=== PATIENT | female | born 1935 | race Caucasian/White ===

== ENCOUNTER 2017-11-05 22:05 | Emergency (ER) | payer OTHER ==
[~2017-11-05] VITALS: Ht 157.5 cm; Wt 48.1 kg
[2017-11-05 22:10] VITALS: BP_SYST 143
[2017-11-05] MEDS ORDERED: CARVEDILOL 6.25 MG TABLET (COREG) PO ONE (23:15)
[2017-11-06] MEDS ORDERED: LABETALOL 100 MG/ 20ML VIAL IVP ONE (00:15)
[2017-11-06] MEDS ORDERED: hydrALAZINE HCL 20 MG/ML VIAL IVP ONE (01:30)
[2017-11-06 02:10] VITALS: BP_SYST 137
== END 2017-11-06 02:20 | disposition home or self-care (01) ==
LOC: SED 22:05
DX: I10 Essential (primary) hypertension (principal); I48.91 Unspecified atrial fibrillation; Z90.49 Acquired absence of other specified parts of digestive tract; Z90.89 Acquired absence of other organs; Z90.710 Acquired absence of both cervix and uterus; Z98.84 Bariatric surgery status
CPT/HCPCS: 96374; 96375; 99284; J0360; J3490

== ENCOUNTER 2019-06-20 12:11 | Inpatient (IN) | payer OTHER ==
[~2019-06-20] VITALS: Ht 157.5 cm; Wt 41.3 kg
[2019-06-20 12:11] VITALS: BP_SYST 187
[2019-06-20] MEDS ORDERED: NITROGLYCERIN 1 INCH (GM) OINT. TD ONE (12:45)
[2019-06-20 13:57] LABS: ANION GAP 10 (5-15); CALCIUM 9.1 mg/dL (8.4-11.0); CHLORIDE 105 mmol/L (98-107); CREATININE 1.03 mg/dL (0.55-1.30); GLUCOSE 79 mg/dL (70-99); POTASSIUM 5.5 mmol/L (3.5-5.1); SODIUM SERUM 137 mmol/L (136-145); UREA NITROGEN, BLOOD 29 mg/dL (8-21)
[2019-06-20 14:01] LABS: BASOPHILS % (AUTO) 0.2 % (0.0-2.0); EOSINOPHILS # (AUTO) 0.1 K/uL (0.0-0.4); EOSINOPHILS % (AUTO) 0.6 % (0.0-4.0); HEMATOCRIT 37.5 % (36-48); HEMOGLOBIN 12.2 g/dL (12.0-16.0); LYMPHOCYTES # (AUTO) 0.7 K/uL (1.0-5.5); LYMPHOCYTES % (AUTO) 6.2 % (20.5-51.5); MEAN CORPUSCULAR HEMOGLOBIN 31 pg (27-31); MEAN CORPUSCULAR HGB CONC 33 % (32-36); MEAN CORPUSCULAR VOLUME 94 fL (79.0-98.0); MONOCYTES # (AUTO) 1.2 K/uL (0.0-1.0); MONOCYTES % (AUTO) 10.1 % (1.7-9.3); NEUTROPHILS # (AUTO) 9.6 K/uL (1.8-7.7); NEUTROPHILS % (AUTO) 82.9 % (40.0-70.0); PLATELET COUNT (AUTO) 309 K/uL (130-430); RED BLOOD CELL COUNT(AUTO) 3.97 MIL/uL (4.2-6.2); RED CELL DISTRIBUTION WIDTH 15.5 % (9.0-15.0); WHITE BLOOD COUNT (AUTO) 11.6 K/uL (4.8-10.8)
[2019-06-20 14:03] LABS: ALANINE AMINOTRANSFERASE 9 U/L (12-78); ASPARTATE AMINOTRANSFERASE 15 U/L (10-37); TOTAL BILIRUBIN 0.5 mg/dL (0.0-1.0)
[2019-06-20 16:59] VITALS: BP_SYST 163
[2019-06-20] MEDS ORDERED: CARV6.2554 PO (17:02)
[2019-06-20] MEDS ORDERED: PRO40 PO (17:02)
[2019-06-20] MEDS ORDERED: FERR-69 PO (17:02)
[2019-06-20] MEDS ORDERED: BENA10TA11 PO (17:02)
[2019-06-20] MEDS ORDERED: NEU100 PO (17:02)
[2019-06-20] MEDS ORDERED: HYDR25TA4 PO (17:02)
[2019-06-20] MEDS ORDERED: IMIP10TA2 PO (17:25)
[2019-06-20] MEDS ORDERED: CARVEDILOL 12.5 MG TABLET (COREG) PO ONE (17:45)
[2019-06-20] MEDS ORDERED: LISINOPRIL 20 MG TABLET PO ONE (17:45)
[2019-06-20] MEDS ORDERED: BENAZEPRIL HCL 10 MG TABLET (LOTENSIN) PO ONE (17:45)
[2019-06-20] MEDS ORDERED: ALBUTEROL SULFATE 0.083% 2.5 MG/3 ML VIAL.NEB INH PRN (19:00)
[2019-06-20] MEDS ORDERED: cefTRIAXone 1 GM in D5W 50 ML IV SCH (19:00)
[2019-06-20] MEDS ORDERED: IPRATROPIUM BROM 0.5 MG/2.5 ML VIAL.NEB (ATROVENT) INH PRN (19:00)
[2019-06-20] MEDS: IPRATROPIUM BROM 0.5 MG/2.5 ML VIAL.NEB (ATROVENT) INH SCH (19:51)
[2019-06-20] MEDS: ALBUTEROL SULFATE 0.083% 2.5 MG/3 ML VIAL.NEB INH SCH (19:51)
[2019-06-20 20:05] VITALS: BP_SYST 163
[2019-06-20 20:43] VITALS: BP_SYST 161
[2019-06-20] MEDS: LISINOPRIL 20 MG TABLET PO SCH (21:00)
[2019-06-20] MEDS ORDERED: BENAZEPRIL HCL 10 MG TABLET (LOTENSIN) PO SCH (21:00)
[2019-06-20] MEDS: CARVEDILOL 12.5 MG TABLET (COREG) PO SCH (21:46)
[2019-06-20] MEDS: AZITHROMYCIN 500 MG in NS 250 ML IV SCH (21:48)
[2019-06-20] MEDS: FAMOTIDINE PF 20 MG/2 ML VIAL IVP SCH (23:07)
[2019-06-20] MEDS ORDERED: PIPERACILLIN/TAZOBACTAM 3.375 GM/VIAL (ZOSYN) IV ONE (23:31)
[2019-06-20] MEDS: PIPERACILLIN/TAZO 3.375/DEX-IS 50 ML IV SCH (23:31)
[2019-06-21] MEDS ORDERED: SODIUM POLYSTYRENE SULFONATE 15 GM/60 ML UDBTL PO ONE (00:30)
[2019-06-21] MEDS: ALBUTEROL SULFATE 0.083% 2.5 MG/3 ML VIAL.NEB INH SCH ×4 (01:12→19:30)
[2019-06-21] MEDS: IPRATROPIUM BROM 0.5 MG/2.5 ML VIAL.NEB (ATROVENT) INH SCH ×4 (01:12→19:30)
[2019-06-21] MEDS: PIPERACILLIN/TAZO 3.375/DEX-IS 50 ML IV SCH ×3 (05:02→18:22)
[2019-06-21 05:37] VITALS: BP_SYST 125
[2019-06-21 07:36] VITALS: BP_SYST 157
[2019-06-21] MEDS: HEPARIN SODIUM,PORCINE 5000 UNITS/ML VIAL SUBCUT SCH ×2 (09:00→20:01)
[2019-06-21] MEDS: LISINOPRIL 20 MG TABLET PO SCH ×2 (09:01→19:59)
[2019-06-21] MEDS: IMIPRAMINE HCL 10 MG PO SCH (09:01)
[2019-06-21] MEDS: CARVEDILOL 12.5 MG TABLET (COREG) PO SCH ×2 (09:02→19:59)
[2019-06-21 13:51] VITALS: BP_SYST 159
[2019-06-21] MEDS ORDERED: CARVEDILOL 25 MG TABLET (COREG) PO ONE (16:45)
[2019-06-21] MEDS: AZITHROMYCIN 500 MG in NS 250 ML IV SCH (19:56)
[2019-06-21 20:00] VITALS: BP_SYST 165
[2019-06-21] MEDS: FAMOTIDINE PF 20 MG/2 ML VIAL IVP SCH (20:05)
[2019-06-21] MEDS ORDERED: TEMAZEPAM 7.5 MG CAPSULE PO PRN (20:30)
[2019-06-21 23:43] VITALS: BP_SYST 127
[2019-06-22] MEDS: PIPERACILLIN/TAZO 3.375/DEX-IS 50 ML IV SCH ×5 (00:36→23:30)
[2019-06-22] MEDS: IPRATROPIUM BROM 0.5 MG/2.5 ML VIAL.NEB (ATROVENT) INH SCH ×4 (01:29→21:24)
[2019-06-22] MEDS: ALBUTEROL SULFATE 0.083% 2.5 MG/3 ML VIAL.NEB INH SCH ×4 (01:29→21:24)
[2019-06-22 08:00] VITALS: BP_SYST 161
[2019-06-22] MEDS: FUROSEMIDE 20 MG/2 ML VIAL IVP SCH (09:06)
[2019-06-22] MEDS: CARVEDILOL 12.5 MG TABLET (COREG) PO SCH ×2 (09:07→20:45)
[2019-06-22] MEDS: IMIPRAMINE HCL 10 MG PO SCH (09:08)
[2019-06-22] MEDS: HEPARIN SODIUM,PORCINE 5000 UNITS/ML VIAL SUBCUT SCH ×2 (09:12→20:53)
[2019-06-22] MEDS: LISINOPRIL 20 MG TABLET PO SCH ×2 (09:13→20:44)
[2019-06-22 09:20] LABS: BASOPHILS % (AUTO) 0.5 % (0.0-2.0); EOSINOPHILS # (AUTO) 0.2 K/uL (0.0-0.4); EOSINOPHILS % (AUTO) 2.2 % (0.0-4.0); HEMOGLOBIN 12.1 g/dL (12.0-16.0); LYMPHOCYTES # (AUTO) 0.7 K/uL (1.0-5.5); MEAN CORPUSCULAR HEMOGLOBIN 31 pg (27-31); MEAN CORPUSCULAR HGB CONC 33 % (32-36); MEAN CORPUSCULAR VOLUME 95 fL (79.0-98.0); MONOCYTES # (AUTO) 0.5 K/uL (0.0-1.0); NEUTROPHILS # (AUTO) 7.2 K/uL (1.8-7.7); NEUTROPHILS % (AUTO) 83.3 % (40.0-70.0); PLATELET COUNT (AUTO) 239 K/uL (130-430); RED BLOOD CELL COUNT(AUTO) 3.91 MIL/uL (4.2-6.2); RED CELL DISTRIBUTION WIDTH 15.3 % (9.0-15.0); WHITE BLOOD COUNT (AUTO) 8.7 K/uL (4.8-10.8)
[2019-06-22 12:02] LABS: ANION GAP 10 (5-15); CALCIUM 9.7 mg/dL (8.4-11.0); CHLORIDE 100 mmol/L (98-107); CREATININE 1.32 mg/dL (0.55-1.30); GLUCOSE 77 mg/dL (70-99); POTASSIUM 3.9 mmol/L (3.5-5.1); SODIUM SERUM 132 mmol/L (136-145); UREA NITROGEN, BLOOD 28 mg/dL (8-21)
[2019-06-22 12:32] VITALS: BP_SYST 147
[2019-06-22 16:00] VITALS: BP_SYST 115
[2019-06-22 20:00] VITALS: BP_SYST 151
[2019-06-22] MEDS: FAMOTIDINE PF 20 MG/2 ML VIAL IVP SCH (20:45)
[2019-06-22] MEDS: AZITHROMYCIN 500 MG in NS 250 ML IV SCH (20:47)
[2019-06-23] MEDS: ALBUTEROL SULFATE 0.083% 2.5 MG/3 ML VIAL.NEB INH SCH ×3 (02:24→13:51)
[2019-06-23] MEDS: IPRATROPIUM BROM 0.5 MG/2.5 ML VIAL.NEB (ATROVENT) INH SCH ×3 (02:24→13:51)
[2019-06-23] MEDS: PIPERACILLIN/TAZO 3.375/DEX-IS 50 ML IV SCH ×2 (05:24→11:01)
[2019-06-23 07:30] VITALS: BP_SYST 173
[2019-06-23 07:45] VITALS: BP_SYST 173
[2019-06-23] MEDS: IMIPRAMINE HCL 10 MG PO SCH (09:00)
[2019-06-23] MEDS: LISINOPRIL 20 MG TABLET PO SCH (09:01)
[2019-06-23] MEDS: FUROSEMIDE 20 MG/2 ML VIAL IVP SCH (09:02)
[2019-06-23] MEDS: CARVEDILOL 12.5 MG TABLET (COREG) PO SCH (09:02)
[2019-06-23] MEDS: HEPARIN SODIUM,PORCINE 5000 UNITS/ML VIAL SUBCUT SCH (09:05)
[2019-06-23 11:20] VITALS: BP_SYST 146
[2019-06-23 11:39] VITALS: BP_SYST 146
[2019-06-23 16:20] VITALS: BP_SYST 101
== END 2019-06-23 17:50 | DRG 194 ==
LOC: SED 12:11 → STU 15:56
PROVIDERS: ADMIT Internal Medicine Hospice and Palliative Medicine; ATTEND Internal Medicine Hospice and Palliative Medicine
DX: J18.9 Pneumonia, unspecified organism (principal); N17.9 Acute kidney failure, unspecified; I13.0 Hypertensive heart and chronic kidney disease with heart failure and stage 1 through stage 4 chronic kidney disease, or unspecified chronic kidney disease; J44.0 Chronic obstructive pulmonary disease with (acute) lower respiratory infection; I48.20 Chronic atrial fibrillation, unspecified; I50.9 Heart failure, unspecified; I25.10 Atherosclerotic heart disease of native coronary artery without angina pectoris; R45.1 Restlessness and agitation; I25.9 Chronic ischemic heart disease, unspecified; R73.9 Hyperglycemia, unspecified; N18.9 Chronic kidney disease, unspecified; Z90.710 Acquired absence of both cervix and uterus; Z90.49 Acquired absence of other specified parts of digestive tract; Z98.84 Bariatric surgery status
CPT/HCPCS: 36415; 71045; 80048; 80053; 83605; 83735-TC; 84484; 85025; 87040-TC; 93005; 94640; 94760; 96365; G0378; J0456; J0696; J1644; J1940; J1956; J2543; J3490; J7050; J7060; J7613